=== PATIENT | male | born 1950 | race Caucasian/White ===

== ENCOUNTER → 2020-02-27 | Outpatient (CLI) | payer OTHER ==
[~2020-02-27] MED LIST: ALBU90AE2 INH; AMOX1TAB64 PO; BENZ-17 PO; DOXY100T PO; GUAI200T37 PO; INSU100I11 SQ-INSULIN; INSU100I13 SQ-INSULIN; OSEL75CA14 PO; PRED10TA PO; TIOT18CA INH
== END | disposition home or self-care (01) ==
LOC: RAD 12:20
PROVIDERS: ATTEND Orthopaedic Surgery
DX: M19.012 Primary osteoarthritis, left shoulder (principal)